=== PATIENT | male | born 1945 | race Caucasian/White ===

== ENCOUNTER 2024-06-20 15:40 | Emergency (ER) | payer MEDICARE | END 2024-06-20 17:53 | disposition home or self-care (01) | LOC: FB.ED 15:40 | DX: S09.90XA Unspecified injury of head, initial encounter (principal); W18.2XXA Fall in (into) shower or empty bathtub, initial encounter | CPT/HCPCS: 70450; 99283 ==

== ENCOUNTER 2024-07-22 07:06 | Emergency (ER) | payer MEDICARE ==
[2024-07-22 07:40] LABS: BASOPHILS PERCENT AUTO 0.6 % (0.3-3.8); EOSINOPHILS ABSOLUTE AUTO 0.2 x10-3/uL (0.0-0.6); EOSINOPHILS PERCENT AUTO 2.9 % (0.1-6.8); HEMATOCRIT 43.7 % (38.3-50.1); HEMOGLOBIN 14.4 g/dL (12.9-17.7); LYMPHOCYTES ABSOLUTE AUTO 1.3 x10-3/uL (0.5-4.5); LYMPHOCYTES PERCENT AUTO 19.7 % (15.8-45.3); MEAN CORPUSCULAR HEMOGLOBIN 30.7 pg (27.0-33.3); MEAN CORPUSCULAR HGB CONC 32.9 g/dL (28.7-35.3); MEAN CORPUSCULAR VOLUME 93.2 fL (80.8-98.7); MEAN PLATELET VOLUME 7.7 fL (6.7-11.0); MONOCYTES ABSOLUTE AUTO 0.7 x10-3/uL (0.0-1.2); MONOCYTES PERCENT AUTO 10.8 % (5.5-15.2); NEUTROPHILS ABSOLUTE AUTO 4.5 x10-3/uL (1.7-6.9); PLATELET COUNT,PLT 223 x10(3)uL (117-477); RED BLOOD CELL COUNT 4.69 x10(6)uL (3.90-5.90); RED CELL DISTRIBUTION WIDTH 14.6 % (12.4-15.0); WHITE BLOOD CELL COUNT,WBC 6.8 x10-3/uL (3.2-10.1)
[2024-07-22 07:42] LABS: BLOOD UREA NITROGEN,BUN 36 mg/dL (7-18); CALCIUM 9.2 mg/dL (8.6-10.2); CARBON DIOXIDE,CO2 29 mmol/L (21-32); CHLORIDE,CL 104 mmol/L (100-110); CREATININE 1.5 mg/dL (0.70-1.30); EST CRCL DRUG DOSING (CG) 35.44 mL/min; ESTIMATED GFR 47 mL/min (>60); GLUCOSE RANDOM 91 mg/dL (80-116); POTASSIUM,K 4.8 mmol/L (3.5-5.3); SODIUM,NA 142 mmol/L (135-145)
[2024-07-22 07:43] LABS: INR 2.09 (1.00-1.24); PROTHROMBIN TIME 20.5 sec (9.0-11.1)
== END 2024-07-22 08:47 | disposition home or self-care (01) ==
LOC: FB.ED 07:06
DX: S00.01XA Abrasion of scalp, initial encounter (principal); I69.319 Unspecified symptoms and signs involving cognitive functions following cerebral infarction; I11.0 Hypertensive heart disease with heart failure; I50.9 Heart failure, unspecified; I25.10 Atherosclerotic heart disease of native coronary artery without angina pectoris; I48.91 Unspecified atrial fibrillation; Z79.01 Long term (current) use of anticoagulants; W19.XXXA Unspecified fall, initial encounter
CPT/HCPCS: 36415; 70450; 80048; 85025; 85610; 99283; 99284

== ENCOUNTER 2024-08-29 13:16 | Emergency (ER) | payer MEDICARE ==
[2024-08-29] MEDS: Promethazine 25 MG in Sodium Chloride 0.9% 50 ML IV STA (14:04)
[2024-08-29] MEDS: Meclizine 25 MG Tab PO ONE (14:06)
[2024-08-29 14:09] LABS: BASOPHILS PERCENT AUTO 0.4 % (0.3-3.8); EOSINOPHILS ABSOLUTE AUTO 0.1 x10-3/uL (0.0-0.6); EOSINOPHILS PERCENT AUTO 1.7 % (0.1-6.8); HEMOGLOBIN 14.1 g/dL (12.9-17.7); LYMPHOCYTES ABSOLUTE AUTO 1.2 x10-3/uL (0.5-4.5); LYMPHOCYTES PERCENT AUTO 16.2 % (15.8-45.3); MEAN CORPUSCULAR HGB CONC 33.6 g/dL (28.7-35.3); MEAN CORPUSCULAR VOLUME 92.1 fL (80.8-98.7); MEAN PLATELET VOLUME 7.4 fL (6.7-11.0); MONOCYTES ABSOLUTE AUTO 0.7 x10-3/uL (0.0-1.2); MONOCYTES PERCENT AUTO 9.1 % (5.5-15.2); NEUTROPHILS ABSOLUTE AUTO 5.4 x10-3/uL (1.7-6.9); NEUTROPHILS PERCENT AUTO 72.6 % (40.3-71.8); PLATELET COUNT,PLT 274 x10(3)uL (117-477); RED BLOOD CELL COUNT 4.56 x10(6)uL (3.90-5.90); RED CELL DISTRIBUTION WIDTH 14.8 % (12.4-15.0); WHITE BLOOD CELL COUNT,WBC 7.4 x10-3/uL (3.2-10.1)
[2024-08-29 14:12] LABS: BLOOD UREA NITROGEN,BUN 31 mg/dL (7-18); BUN/CREATININE RATIO 19.4 (9-20); CALCIUM 9.4 mg/dL (8.6-10.2); CARBON DIOXIDE,CO2 28 mmol/L (21-32); CHLORIDE,CL 106 mmol/L (100-110); CREATININE 1.6 mg/dL (0.70-1.30); ESTIMATED GFR 43 mL/min (>60); GLUCOSE RANDOM 91 mg/dL (80-116); POTASSIUM,K 4.7 mmol/L (3.5-5.3); SODIUM,NA 143 mmol/L (135-145)
[2024-08-29 14:18] LABS: A/G RATIO 0.8; ALANINE AMINOTRANSFERASE,ALT 31 U/L (12-36); ALBUMIN 3.6 g/dL (3.2-4.6); ALKALINE PHOSPHATASE 108 IU/L (56-112); ASPARTATE AMNIOTRANSFERASE,AST 26 IU/L (5-25); BILIRUBIN TOTAL 0.7 mg/dL (0.1-1.3); PROTEIN TOTAL,TP 7.9 g/dL (6.0-8.0)
[2024-08-29 14:21] LABS: EST CRCL DRUG DOSING (CG) 33.45 mL/min
== END 2024-08-29 15:59 ==
LOC: FB.ED 13:16
DX: H81.10 Benign paroxysmal vertigo, unspecified ear (principal); I11.0 Hypertensive heart disease with heart failure; I50.9 Heart failure, unspecified; E78.00 Pure hypercholesterolemia, unspecified
CPT/HCPCS: 70450; 80053; 84484; 85025; 93005; 96365; 99284-25; A9270-GY; J2550; J3490

== ENCOUNTER 2024-10-11 11:50 | Emergency (ER) | payer MEDICARE ==
[2024-10-11] MEDS ORDERED: Sodium Chloride 0.9% 10 ML Syringe FLUSH PRN (11:54)
[2024-10-11 12:17] LABS: BASOPHILS PERCENT AUTO 0.3 % (0.3-3.8); BLOOD UREA NITROGEN,BUN 29 mg/dL (7-18); BUN/CREATININE RATIO 17.1 (9-20); CALCIUM 9.4 mg/dL (8.6-10.2); CARBON DIOXIDE,CO2 29 mmol/L (21-32); CHLORIDE,CL 105 mmol/L (100-110); CREATININE 1.7 mg/dL (0.70-1.30); EOSINOPHILS ABSOLUTE AUTO 0.2 x10-3/uL (0.0-0.6); EOSINOPHILS PERCENT AUTO 4.1 % (0.1-6.8); EST CRCL DRUG DOSING (CG) 30.75 mL/min; ESTIMATED GFR 40 mL/min (>60); GLUCOSE RANDOM 94 mg/dL (80-116); HEMATOCRIT 41.1 % (38.3-50.1); HEMOGLOBIN 13.7 g/dL (12.9-17.7); LYMPHOCYTES ABSOLUTE AUTO 1.3 x10-3/uL (0.5-4.5); LYMPHOCYTES PERCENT AUTO 23.6 % (15.8-45.3); MEAN CORPUSCULAR HEMOGLOBIN 30.7 pg (27.0-33.3); MEAN CORPUSCULAR HGB CONC 33.4 g/dL (28.7-35.3); MEAN PLATELET VOLUME 7.6 fL (6.7-11.0); MONOCYTES ABSOLUTE AUTO 0.6 x10-3/uL (0.0-1.2); MONOCYTES PERCENT AUTO 10.9 % (5.5-15.2); NEUTROPHILS ABSOLUTE AUTO 3.5 x10-3/uL (1.7-6.9); NEUTROPHILS PERCENT AUTO 61.2 % (40.3-71.8); PLATELET COUNT,PLT 208 x10(3)uL (117-477); POTASSIUM,K 4.8 mmol/L (3.5-5.3); RED BLOOD CELL COUNT 4.47 x10(6)uL (3.90-5.90); RED CELL DISTRIBUTION WIDTH 14.7 % (12.4-15.0); SODIUM,NA 143 mmol/L (135-145); WHITE BLOOD CELL COUNT,WBC 5.7 x10-3/uL (3.2-10.1)
[2024-10-11 12:23] LABS: A/G RATIO 0.9; ALANINE AMINOTRANSFERASE,ALT 22 U/L (12-36); ALBUMIN 3.6 g/dL (3.2-4.6); ALKALINE PHOSPHATASE 100 IU/L (56-112); ASPARTATE AMNIOTRANSFERASE,AST 15 IU/L (5-25); BILIRUBIN TOTAL 0.6 mg/dL (0.1-1.3); PROTEIN TOTAL,TP 7.7 g/dL (6.0-8.0)
[2024-10-11 12:30] LABS: TROPONIN I 20.3 pg/mL (4.0-60.3)
[2024-10-11 12:39] LABS: INR 2.22 (1.00-1.24); PROTHROMBIN TIME 21.6 sec (9.0-11.1)
== END 2024-10-11 15:35 | disposition home or self-care (01) ==
LOC: FB.ED 11:50
DX: R55 Syncope and collapse (principal); I25.10 Atherosclerotic heart disease of native coronary artery without angina pectoris; I48.91 Unspecified atrial fibrillation; I11.0 Hypertensive heart disease with heart failure; I50.9 Heart failure, unspecified; E78.00 Pure hypercholesterolemia, unspecified; E03.9 Hypothyroidism, unspecified; Z86.73 Personal history of transient ischemic attack (TIA), and cerebral infarction without residual deficits; Z79.01 Long term (current) use of anticoagulants; Z79.890 Hormone replacement therapy; Z79.899 Other long term (current) drug therapy
CPT/HCPCS: 36415; 71045; 80053; 83880; 84484; 85025; 85610; 93005; 99285

== ENCOUNTER 2025-03-25 17:25 | Emergency (ER) | payer MEDICARE | END 2025-03-25 18:46 | disposition home or self-care (01) | LOC: FB.ED 17:25 | DX: R09.89 Other specified symptoms and signs involving the circulatory and respiratory systems (principal); I48.91 Unspecified atrial fibrillation; I25.10 Atherosclerotic heart disease of native coronary artery without angina pectoris; I11.0 Hypertensive heart disease with heart failure; I50.9 Heart failure, unspecified; E78.00 Pure hypercholesterolemia, unspecified; E03.9 Hypothyroidism, unspecified; Z86.73 Personal history of transient ischemic attack (TIA), and cerebral infarction without residual deficits; Z79.899 Other long term (current) drug therapy; Z79.890 Hormone replacement therapy; Z79.01 Long term (current) use of anticoagulants | CPT/HCPCS: 99283 ==